=== PATIENT | female | born 1960 | race African-American/Black ===

== ENCOUNTER 2024-03-26 11:40 | Emergency (ER) | payer MEDICAID, OTHER ==
[~2024-03-26] VITALS: Ht 165.1 cm; Wt 80.6 kg
[2024-03-26] MEDS ORDERED: SIMV20TA22 PO (11:52)
[2024-03-26] MEDS ORDERED: DOXE150C PO (11:52)
[2024-03-26] MEDS ORDERED: NOXI1TAB PO (11:52)
[2024-03-26] MEDS ORDERED: BRIN1TAB PO (11:52)
[2024-03-26] MEDS: ONDANSETRON 4MG 2ML VIAL IV ONE (12:47)
[2024-03-26] MEDS: ACETAMINOPHEN TAB 650MG DOSE (2X325MG) PO ONE (12:49)
[2024-03-26 12:56] LABS: BASO # 0.1 10^3/uL (0.0-0.2); BASO % 0.8 % (0.0-1.0); EOS # 0.1 10^3/uL (0.0-0.5); EOS % 0.9 % (0.0-3.0); HEMATOCRIT 43.8 % (36.0-47.0); HEMOGLOBIN 14.7 g/dl (12.0-15.5); LYMPH # 2.1 10^3/uL (1.5-5.0); LYMPH % 26.6 % (24.0-44.0); MEAN CORPUSCULAR HEMOGLOBIN 31.8 pg (27.0-33.0); MEAN CORPUSCULAR HGB CONC 33.6 g/dl (32.0-36.5); MEAN CORPUSCULAR VOLUME 94.8 fl (80.0-96.0); MONO # 0.6 10^3/uL (0.0-0.8); MONO % 7.8 % (2.0-8.0); NEUTROPHILS # 4.9 10^3/uL (1.5-8.5); NEUTROPHILS % 63.6 % (36.0-66.0); PLATELET COUNT, AUTOMATED 297 10^3/uL (150-450); RED BLOOD COUNT 4.62 10^6/uL (4.00-5.40); WHITE BLOOD COUNT 7.7 10^3/uL (4.0-10.0)
[2024-03-26 13:18] LABS: BILIRUBIN,DIRECT 0.1 MG/DL (<0.4); BILIRUBIN,TOTAL 0.5 MG/DL (0.3-1.2); TOTAL PROTEIN 8.1 G/DL (5.7-8.2)
[2024-03-26] MEDS ORDERED: ISOVUE-370 76% 100ML VIAL As Ordered ONE (13:59)
[2024-03-26] MEDS ORDERED: DICY-61 PO (15:19)
[2024-03-26 15:26] VITALS: BP 125/84; TEMP 98.2; O2SAT 95
[2024-03-26] MEDS: DICYCLOMINE 10 MG CAP PO ONE (15:27)
== END 2024-03-26 15:33 | disposition home or self-care (01) ==
LOC: M ED 11:40
DX: R10.9 Unspecified abdominal pain (principal); K80.20 Calculus of gallbladder without cholecystitis without obstruction; K42.9 Umbilical hernia without obstruction or gangrene; I44.4 Left anterior fascicular block; E78.5 Hyperlipidemia, unspecified; Z79.899 Other long term (current) drug therapy
CPT/HCPCS: 36415; 74177; 80047; 80076; 81001; 83690; 85025; 87086; 93005; 96374; 99284; J2405; Q9967

== ENCOUNTER → 2024-05-10 | Outpatient (CLI) | payer OTHER ==
[~2024-05-10] MED LIST: BRIN1TAB PO; DICY-61 PO; DOXE150C PO; NOXI1TAB PO; SIMV20TA22 PO
[2024-05-10 09:31] LABS: FOLATE 8.6 NG/ML (>5.4)
== END ==
LOC: M LAB 07:54
PROVIDERS: ATTEND Psychiatry & Neurology Neurology
DX: G21.8 Other secondary parkinsonism (principal)

== ENCOUNTER → 2024-10-06 | Outpatient (CLI) | payer OTHER | LOC: M WHC 12:34 | PROVIDERS: ATTEND Obstetrics & Gynecology | DX: Z12.31 Encounter for screening mammogram for malignant neoplasm of breast (principal); R92.313 Mammographic fatty tissue density, bilateral breasts ==

== ENCOUNTER → 2025-01-05 | Outpatient (CLI) | payer OTHER ==
[2025-01-05 10:00] LABS: BASO # 0.0 10^3/uL (0.0-0.2); BASO % 0.7 % (0.0-1.0); EOS # 0.1 10^3/uL (0.0-0.5); EOS % 2.0 % (0.0-3.0); LYMPH # 2.2 10^3/uL (1.5-5.0); LYMPH % 37.1 % (24.0-44.0); MONO # 0.5 10^3/uL (0.0-0.8); MONO % 7.8 % (2.0-8.0); NEUTROPHILS # 3.1 10^3/uL (1.5-8.5); NEUTROPHILS % 52.4 % (36.0-66.0); PLATELET COUNT, AUTOMATED 265 10^3/uL (150-450)
[2025-01-05 10:29] LABS: ALT/SGPT 27.0 U/L (7.0-40); AST/SGOT 28.0 U/L (<34); CALCIUM LEVEL 9.3 MG/DL (8.3-10.6); CARBON DIOXIDE LEVEL 28.0 MMOL/L (20-31); CHLORIDE LEVEL 107.0 MMOL/L (98-107); CREATININE FOR GFR 0.77 MG/DL (0.55-1.30); GLOMERULAR FILTRATION RATE 86.6 (>45); POTASSIUM SERUM 4.5 MMOL/L (3.5-5.1); SODIUM LEVEL 144.0 MMOL/L (136-145)
[2025-01-06 10:32] LABS: CERULOPLASMIN 36.0 mg/dL (14-48)
[2025-01-08 12:08] LABS: COPPER PLASMA 134.0 mcg/dL (70-175)
== END ==
LOC: M LAB 09:01
PROVIDERS: ATTEND Psychiatry & Neurology Neurology
DX: R25.1 Tremor, unspecified (principal); E83.01 Wilson's disease